=== PATIENT | male | born 1955 ===

== ENCOUNTER 2018-11-19 17:27 | Emergency (ER) | payer BC ==
[2018-11-19 17:56] VITALS: BP 138/75; PULSE 90; RESP 20; TEMP 99.6; O2SAT 96
--- NOTE | 2018-11-19 18:14 | ED PDOC ---
History of Present Illness History of Present Illness: Pt presents to the ED with two days of persistent symptoms that mimick the flu inlcuding fever, cough, and body aches. Pt denies any comorbidities or symptoms of nausea vomiting or diarhhea. Pt is afebrile on presntation and has no signs consistent with sepsis HPI: Influenza Time Seen by Provider: 11/19/18 18:05 Chief Complaint: Cough, Cold, Congestion Chief Complaint (Provider): Influenza like symptoms History Per: Patient Exam Limitations: no limitations Have you had recent travel within the past 21 days to any of: No Onset/Duration Of Symptoms: Days (two days) Symptoms include: fever, headache, bodyaches, sore throat, cough, nasal congestion. denies: vomiting, diarrhea, chest pain, difficulty breathing Sick Contacts (Context): None Hx Influenza Vaccination: No Past Medical History Reviewed: Historical Data, Nursing Documentation, Vital Signs Vital Signs: Last Vital Signs Temp 99.6 F 11/19/18 17:54 Pulse 90 11/19/18 17:54 Resp 20 11/19/18 17:54 BP 138/75 11/19/18 17:54 Pulse Ox 96 11/19/18 17:54 - Family History Family History: States: Unknown Family Hx - Allergies Allergies/Adverse Reactions: Allergies Allergy/AdvReac Type Severity Reaction Status Date / Time No Known Allergies Allergy Verified 11/19/18 17:52 Review of Systems ROS Statement: Except As Marked, All Systems Reviewed And Found Negative Constitutional: Positive for: Fever ENT: Positive for: Nose Discharge, Nose Congestion, Throat Pain Physical Exam - Reviewed Nursing Documentation Reviewed: Yes Vital Signs Reviewed: Yes - Physical Exam Appears: Positive for: Well, Non-toxic, No Acute Distress. Negative for: Uncomfortable Head Exam: Positive for: ATRAUMATIC, NORMAL INSPECTION Skin: Positive for: Normal Color, Warm, Dry. Negative for: Diaphoresis, Pallor, Rash ENT: Positive for: Pharynx Is (mildly erythematous bilaterally without tonsillar exudate or edema), Pharyngeal Erythema. Negative for: Tonsillar Exudate, Tonsillar Swelling Neck: Positive for: Normal, Painless ROM, Supple. Negative for: Decreased ROM Cardiovascular/Chest: Positive for: Regular Rate, Rhythm Respiratory: Positive for: Normal Breath Sounds Pulses-Carotid (L): 2+ Pulses-Carotid (R): 2+ Pulses-Radial (L): 2+ Pulses-Radial (R): 2+ Medical Decision Making Medical Decision Making: Inflenza negative Strep negative Pt is afebrile will discharge with instructions for care of viral illness Pt is stable and suitable for discharge and there is no further diagnostics or therapeutics available in the ED - ECG O2 Sat by Pulse Oximetry: 96 Disposition - Clinical Impression Clinical Impression: Common cold - Patient ED Disposition Is Patient to be Admitted: No Doctor Will See Patient In The: Office Counseled Patient/Family Regarding: Studies Performed, Diagnosis, Need For Followup - Disposition Disposition: Routine/Home Disposition Time: 19:01 Condition: STABLE Additional Instructions: Dayquil Nyquil Fluids Rest and Chicken soup Follow up with PMD in 48 hours if symptoms persist; return to ED if symptoms worsen Instructions: Viral Upper Respiratory Infection, Adult (DC), Cough, Runny Nose, and the Common Cold Forms: [employer] ([place]z)
== END 2018-11-19 19:10 | disposition home or self-care (01) ==
LOC: H.ER 17:27
DX: J00 Acute nasopharyngitis [common cold] (principal)